=== PATIENT | female | born 1960 | race Caucasian/White ===

== ENCOUNTER → 2016-09-13 | Outpatient (CLI) | payer OTHER | LOC: FIMAGING 13:30 | DX: Z12.31 Encounter for screening mammogram for malignant neoplasm of breast (principal) | CPT/HCPCS: G0202 ==

== ENCOUNTER 2017-07-01 05:36 | Observation (INO) | payer OTHER ==
--- NOTE | 2017-06-23 07:56 | GHP ---
[f rep st] HISTORY AND PHYSICAL DATE OF ADMISSION: 07/01/2017 ADMITTING DIAGNOSES: 1. Perimenopausal menorrhagia. 2. Abnormal uterine bleeding. 3. Uterine leiomyomata. HISTORY OF PRESENT ILLNESS: Patient is a 56-year-old, 3, para 3-0-0-3, who presents with complaint of heavy, painful irregular menses for the past 6- 12 months. The patient can skip 1-2 months at a time, and then have 2 cycles in 1 month that are very heavy with clots and painful cramps. Usually, she bleeds for at least 10-14 days. The patient has been on hormone replacement therapy, bioidenticals, for the past 4 months secondary to vasomotor symptoms and doing very well. The patient had a previous workup with my partner, Yaakov Knox, for dysfunctional uterine bleeding, and perimenopausal menorrhagia with a negative endometrial biopsy. No anemia or thyroid dysfunction was found. A pelvic ultrasound revealed an enlarged uterus with fibroids x2, largest measuring 4.3 cm. Normal ovaries. The patient states she is done with these heavy, irregular painful cycles, and desires definitive treatment at this time, a hysterectomy. The patient states she would like to keep her ovaries at this time. PAST OB HISTORY: Patient had a full-term with 1 secondary to HSV, then a repeat with G2, and a with G3. 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 Cycles used to be regular and now, she is having perimenopausal bleeding and cycles are heavy and irregular. The patient has a history of abnormal Pap smears and had a LEEP about in 2014. 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 PAST MEDICAL HISTORY: Remarkable for hypertension, anxiety. PAST SURGICAL HISTORY: x2, LEEP. CURRENT MEDICATIONS: Estradiol, testosterone, DHEA, progesterone, Xanax, lisinopril, Lexapro. ALLERGIES: Norvasc and sulfa. SOCIAL HISTORY: Patient is . She lives with her . Denies any tobacco, illicit drug use. She drinks 1-2 alcoholic beverages a week. REVIEW OF SYSTEMS: A 10-point review of systems is negative. Pertinent positives noted in HPI. LAB WORK: H and H 14.8/43.8. PHYSICAL EXAMINATION: VITAL SIGNS: On admission, stable. GENERAL: The patient is alert, oriented x3. Well-nourished, well-developed female in no apparent distress. CARDIOVASCULAR: Regular rate and rhythm. LUNGS: Clear to auscultation bilaterally. ABDOMEN: Soft, nondistended, nontender. Pfannenstiel incision is well healed. PELVIC: Bimanual: There was enlarged uterus, 8-10 week size, mobile, nontender. No adnexal masses noted. ASSESSMENT AND PLAN: Patient is a 56-year-old, 3, para 3, with perimenopausal menorrhagia, AUB and uterine leiomyomata. 1. Discussed the procedure, total laparoscopic hysterectomy, bilateral salpingectomy with removal of uterus and tubes, its limitations, nothing by mouth status, postoperative recovery. 2. Surgical consents were obtained. We discussed the risks, benefits, alternatives of procedure including but not limited to, bleeding, infection, and damage to surrounding organs. The patient understands all risks of surgery at this time and wants to proceed with surgery. 3. Antibiotics quality control expert to operating room. 4. Sequential compression devices for deep vein thrombosis prophylaxis. /[id number]/MODL MTDD
[2017-07-01] MEDS ORDERED: ceFAZolin 2 GM/SWFI 2 GM/20 ML SYR IVP ONE (06:04)
[2017-07-01] MEDS ORDERED: LIDOCAINE 1% 2 ML INJ ONE (06:05)
[2017-07-01] MEDS ORDERED: LR 1,000 ML IV ONE (06:13)
[2017-07-01] MEDS ORDERED: LIDOCAINE 1% 2 ML INJ ID PRN (06:29)
--- NOTE | 2017-07-01 07:04 | PDHPUP ---
History & Physical Update H&P update statement: This history and physical update is based on an assessment of the patient which was completed after admission or registration (within 24 hours), but prior to the surgery/procedure. H&P update: H&P reviewed & patient examined, no change in patient's condition since H&P completed
[2017-07-01] MEDS ORDERED: MIDAZOLAM 2 MG/2 ML VIAL IVP ONE (07:06)
--- NOTE | 2017-07-01 07:08 | PDANEPAE ---
ANE History of Present Illness fibroids ANE Past Medical History - Cardiovascular History Hx Hypertension: Yes Hx Arrhythmias: No Hx Chest Pain: No Hx Coronary Artery / Peripheral Vascular Disease: No Hx CHF / Valvular Disease: No Hx Palpitations: No - Pulmonary History Hx COPD: No Hx Asthma/Reactive Airway Disease: No Hx Recent Upper Respiratory Infection: No Hx Oxygen in Use at Home: No Hx Sleep Apnea: No Sleep Apnea Screening Result - Last Documented: Negative - Neurologic History Hx Cerebrovascular Accident: No Hx Seizures: No Hx Dementia: No - Endocrine History Hx Diabetes: No - Renal History Hx Renal Disorders: No - Liver History Hx Hepatic Disorders: No - Neurological & Psychiatric Hx Hx Neurological and Psychiatric Disorders: Yes Neurological / Psychiatric History Comment: anxiety - Cancer History Hx Cancer: No - Congenital Disorder History Hx Congenital Disorders: No - GI History Hx Gastrointestinal Disorders: Yes Gastrointestinal History Comment: reflux - Other Health History Other Health History: none - Chronic Pain History Chronic Pain: No - Surgical History Prior Surgeries: colonoscopy, breast augmentation ANE Review of Systems Review of Systems: - Exercise capacity METS (RN): 5 METS ANE Patient History - Allergies Allergies/Adverse Reactions: Sulfa (Sulfonamide Antibiotics) Allergy (Severe, Verified 06/16/17 11:17) Other-Enter Comments - Home Medications Home Medications: ALPRAZolam [Xanax 0.25 MG (*)] 0.25 mg PO HS 06/15/17 [Last Taken 07/01/17] Acyclovir [Zovirax 400 mg (*)] 400 mg PO DAILY 06/15/17 [Last Taken 07/01/17] Escitalopram Oxalate [Lexapro] 5 mg PO DAILY 06/15/17 [Last Taken 06/30/17] Estradiol Micronized TP DAILY 06/15/17 [Last Taken 07/01/17] Lisinopril [Zestril 40 mg (*)] 40 mg PO DAILY 06/15/17 [Last Taken 07/01/17] Omeprazole [Prilosec 20 mg] 20 mg PO DAILY 06/15/17 [Last Taken 07/01/17 04:45] Prasterone (Dhea) [Dhea] mg PO DAILY 06/15/17 [Last Taken 06/30/17] Progesterone, Micronized [Progesterone] mg PO DAILY 06/15/17 [Last Taken 20:00] Testosterone Micronized TP DAILY 06/15/17 [Last Taken 06/30/17] - NPO status NPO Since - Liquids (Date): 07/01/17 NPO Since - Liquids (Time): 04:45 NPO Since - Solids (Date): 06/30/17 NPO Since - Solids (Time): 18:00 - Smoking Hx Smoking Status: Never smoked - Family Anes Hx Family Hx Anesthesia Complications: none ANE Labs/Vital Signs - Vital Signs Vital Signs: reviewed preoperatively; see RN documention for details Blood Pressure: 146/97 Heart Rate: 76 Respiratory Rate: 16 O2 Sat (%): 96 Height: 170.18 cm Weight: 71.668 kg ANE Physical Exam - Airway Neck exam: FROM Mallampati Score: Class 2 Mouth exam: normal dental/mouth exam - Pulmonary Pulmonary: no respiratory distress - Cardiovascular Cardiovascular: regular rate and rhythym - ASA Status ASA Status: II ANE Anesthesia Plan Anesthesia Plan: general endotracheal anesthesia
[2017-07-01] MEDS ORDERED: ROCURONIUM 50 MG/5 ML VIAL ONE (07:13)
[2017-07-01] MEDS ORDERED: fentaNYL 100 MCG/2 ML INJ ONE ×2 (07:13)
[2017-07-01] MEDS ORDERED: HYDROmorphONE/DILAUDID 2 MG/ML INJ ONE (07:13)
[2017-07-01] MEDS ORDERED: PROPOFOL 200 MG/20 ML VIAL ONE (07:14)
[2017-07-01] MEDS ORDERED: BUPIVACAINE 0.5% 30 ML SDV ONE (07:22)
[2017-07-01] MEDS ORDERED: HYDROCODONE/APAP 5/325 TAB PO PRN (09:20)
[2017-07-01] MEDS ORDERED: ONDANSETRON 4 MG/2 ML VIAL IVP PRN (09:20)
[2017-07-01] MEDS ORDERED: fentaNYL 100 MCG/2 ML INJ IVP PRN (09:20)
[2017-07-01] MEDS ORDERED: NALOXONE HCL 0.4 MG/ML INJ IVP PRN (09:20)
[2017-07-01] MEDS ORDERED: HYDROmorphONE/DILAUDID 1 MG/ML INJ IVP PRN (09:20)
[2017-07-01] MEDS ORDERED: PROMETHAZINE HCL 25 MG/ML INJ IVP PRN (09:20)
[2017-07-01] MEDS ORDERED: PHENYLEPHRINE HCL 100 MCG/ML SYR ONE (09:28)
[2017-07-01] MEDS ORDERED: SUGAMMADEX SODIUM 200 MG/2 ML VIAL IVP ONE (09:28)
[2017-07-01] MEDS ORDERED: DEXAMETHASONE 4 MG/ML VIAL ONE (09:32)
[2017-07-01] MEDS ORDERED: ONDANSETRON 4 MG/2 ML VIAL ONE (09:32)
[2017-07-01] MEDS ORDERED: MAGNESIUM HYDROXIDE 30 ML UDCUP PO PRN (09:39)
[2017-07-01] MEDS ORDERED: BISACODYL 10 MG SUPP PR PRN (09:39)
[2017-07-01] MEDS ORDERED: LACTULOSE 20 GM/30 ML UDCUP PO PRN (09:39)
[2017-07-01] MEDS ORDERED: POLYETHYLENE GLYCOL 3350 17 GM PKT PO PRN (09:39)
--- NOTE | 2017-07-01 09:39 | POSTOPPROG ---
Post Op Note Date of Operation: 07/01/17 Surgeon: Paola George [employer] Consultant: Jeannine James Anesthesiologist: Dr. Wellington Anesthesia: GET(General Endotracheal) Pre-op Diagnosis: Perimenopausal menorrhagia; AUB; Uterine leiomyomata Post-op Diagnosis: Perimenopausal menorrhagia; AUB; Uterine leiomyomata Indication: 56 y/o with heavy, irregular menses and fibroid uterus noted on u/s Procedure: TLH, BS Findings: Grossly enlarged ut 8-10 wk size w/ lg post fibroid; tubes/ovaries wnl Inf/Abcess present in the surg proc area at time of surgery?: No Depth: Organ Space EBL: 50-100 (50 cc) Total fluids administered: 1200cc LR UO: 100 cc clear urine Complications: None Specimen(s): Uterus and b/l tubes
--- NOTE | 2017-07-01 09:40 | POSTANESTH ---
Post Anesthetic Evaluation Cardiovascular Status: Normal, Stable Respiratory Status: Normal, Stable Level of Consciousness/Mental Status: Can Participate in Eval Pain Control: Adequate, Prn Tx Ordered Nausea/Vomiting Control: Adequate, Prn Tx Ordered Complications Possibly Related to Anesthesia: None Noted
[2017-07-01] MEDS ORDERED: LR 1,000 ML IV SCH (10:00)
[2017-07-01] MEDS: KETOROLAC 30 MG/1 ML SDV IVP PRN ×3 (10:52→23:40)
[2017-07-01] MEDS: HYDROCODONE/APAP 5/325 TAB PO PRN ×3 (14:50→20:31)
[2017-07-01] MEDS: SENNOSIDES/DOCUSATE SODIUM TAB PO SCH (20:31)
[2017-07-01 23:54] VITALS: O2SAT 95
[2017-07-02] MEDS: HYDROCODONE/APAP 5/325 TAB PO PRN ×2 (04:40→08:29)
[2017-07-02 04:50] VITALS: RESP 18
[2017-07-02] MEDS: KETOROLAC 30 MG/1 ML SDV IVP PRN (05:40)
[2017-07-02 08:22] VITALS: BP 135/79; PULSE 74; TEMP 98.1
[2017-07-02] MEDS: SENNOSIDES/DOCUSATE SODIUM TAB PO SCH (08:29)
--- NOTE | 2017-07-02 09:37 | SOAPPROG ---
[facility] Progress Note Assessment/Plan: Assessment: 1) s/p TLH, BS secondary to perimenopausal menorrhagia, AUB and uterine leiomyomata POD # 1 - pt is stable 2) Anemia - pt is asymptomatic Plan: Plan for d/c home today Instructions reviewed with pt Rx given for Bolivar and Motrin Cont colace and increase iron-rich foods Pelvic rest Lifting restrictions given RTC in 2 weeks for incision check 07/02/17 09:37 Subjective: Pt seen and examined. Doing well, having some discomfort this am. Just received Bolivar x 2 less than 1 hr ago. Pt is OOB, rob regular diet, voiding without difficulty x 3 and passing flatus. No BM. Denies any f/c/n/v/CP or SOB. Minimal spotting noted. No calf tenderness. Objective: Vital Signs Temp Pulse Resp BP Pulse Ox 36.7 C 74 18 135/79 H 95 07/02/17 08:00 07/02/17 08:00 07/02/17 08:00 07/02/17 08:00 07/02/17 08:00 Laboratory Results 07/02/17 04:45 07/01/17 07/02/17 07/03/17 05:59 05:59 05:59 Intake Total 1400 Output Total 2650 Balance -1250 Physical Exam - Physical Exam General Appearance: WD/WN, alert, no apparent distress Respiratory: lungs clear, normal breath sounds Cardiac/Chest: regular rate, rhythm Abdomen: normal bowel sounds, soft, distended (mild), other (approproiate tenderness; Laparoscopic incisions x 3 - C/D/I with glue, well approximated) Pelvic Exam: deferred Skin: normal color, warm/dry Extremities: non-tender Neuro/Psych: alert, normal mood/affect, oriented x 3 ICD10 Worksheet Patient Problems: Problems Problem Status Onset Abnormal uterine bleeding (AUB) Acute Fibroids Acute Perimenopausal menorrhagia Acute - ICD10 Problem Qualifiers (1) Perimenopausal menorrhagia (2) Abnormal uterine bleeding (AUB) (3) Fibroids
[2017-07-02] MEDS ORDERED: IBUPROFEN 600 MG TAB PO SCH (09:42)
== END 2017-07-02 10:45 | disposition home or self-care (01) ==
LOC: F3E 05:36 → FOB 10:33
PROVIDERS: ADMIT Obstetrics & Gynecology; ATTEND Obstetrics & Gynecology
PROC: 0UT74ZZ Resection of Bilateral Fallopian Tubes, Percutaneous Endoscopic Approach (ICD-10-PCS; principal; 2017-07-01 07:15)
PROC: 0UT94ZZ Resection of Uterus, Percutaneous Endoscopic Approach (ICD-10-PCS; principal; 2017-07-01 07:15)
DX: D25.2 Subserosal leiomyoma of uterus (principal); D25.1 Intramural leiomyoma of uterus; N84.0 Polyp of corpus uteri; N92.4 Excessive bleeding in the premenopausal period
CPT/HCPCS: G0378; J0690; J1100; J1170; J1885; J2250; J2370; J2405; J2704; J3010

== ENCOUNTER → 2017-09-20 | Outpatient (CLI) | payer OTHER | LOC: FIMAGING 15:17 | PROVIDERS: ATTEND Obstetrics & Gynecology | DX: Z12.31 Encounter for screening mammogram for malignant neoplasm of breast (principal) ==

== ENCOUNTER → 2018-09-26 | Outpatient (CLI) | payer OTHER | LOC: FIMAGING 15:00 | PROVIDERS: ATTEND Internal Medicine | DX: Z12.31 Encounter for screening mammogram for malignant neoplasm of breast (principal) ==